=== PATIENT | female | born 1940 | race Caucasian/White ===

== ENCOUNTER 2022-01-30 06:39 | Emergency (ER) | payer MEDICARE, SELFPAY ==
[2022-01-30 06:45] VITALS: BP 179/78; PULSE 63; RESP 18; O2SAT 100; BMI 19.0
--- NOTE | 2022-01-30 07:06 | ED.EPISTAXIS ---
HPI - Epistaxis General Chief complaint: Nasal Problem Stated complaint: Nose Bleed Time Seen by Provider: 01/30/22 06:55 Source: patient Mode of arrival: EMS History of Present Illness HPI Narrative: 81-year-old female nonsmoker with noncontributory medical history presents with the chief complaint of a sudden painless right-sided nose bleed. She states she had a small amount of bleeding yesterday that she was able to stop with pressure but awoke this morning with a large amount of bright red blood largely from her right nostril but also coming out her left. She denies any trauma or injury and states she had not been recently ill. She denies any history of the same. She is not dizzy nor weak or lightheaded. She denies any chest pain or shortness of breath. Related Data Allergies Allergy/AdvReac Type Severity Reaction Status Date / Time No Known Drug Allergies Allergy Verified 01/30/22 06:45 Review of Systems Review of Systems Narrative: GENERAL: Denies chills, fatigue, malaise, fever, sweats. HEENT: See HPI RESPIRATORY: Denies dyspnea, cough, wheezing, hemoptysis, sputum. CARDIOVASCULAR: Denies chest pain, palpitations, orthopnea, edema, GASTROINTESTINAL: Denies nausea, vomiting, abdominal pain, diarrhea, constipation, melena. : Denies dysuria, frequency, incontinence, hematuria, urinary retention. MUSCULOSKELETAL: denies weakness, joint pain, or bony pain SKIN: Denies rash, skin lesions, or other NEUROLOGIC: Denies weakness, headache, numbness, change in speech, confusion, seizures, incoordination. PSYCHIATRIC: No concerning psychosocial issues. 12 point review of systems is negative except for those stated above Exam Narrative Exam Narrative: GENERAL: [81] year old patient appears stated age. Well-developed patient, in mild distress. HEAD: Atraumatic. Normocephalic. EYES: Pupils equal round and reactive. Extraocular motions intact. No scleral icterus. No injection or drainage. ENT: Brisk bright red bleeding from right nare, clots present but source of bleeding unable to be visualized. Fresh clots and left Alexandre, no source of bleeding noted Throat without erythema, tonsillar hypertrophy or exudate. Airway patent. NECK: Trachea midline. Non tender CARDIOVASCULAR: Regular rate and rhythm without murmurs, gallops, or rubs. RESPIRATORY: Clear to auscultation. Breath sounds equal bilaterally. No wheezes, rales, or rhonchi. GASTROINTESTINAL: Abdomen soft, non-tender, nondistended. EXTREMITIES: No edema or joint tenderness. BACK: Nontender without deformity or crepitance. No flank tenderness. NEURO: AOx3. SKIN: No rash or erythema of visible areas Initial Vital Signs Initial Vital Signs: Vital Signs Pulse Rate 63 01/30/22 06:45 Respiratory Rate 18 01/30/22 06:45 Blood Pressure 179/78 H 01/30/22 06:45 Pulse Oximetry 100 01/30/22 06:45 Oxygen Delivery Method 01/30/22 06:45 Procedures Epistaxis Control Time Out Performed: Yes Nostril: right Nose Prepped With: oxymetazoline Direct Inspection: yes Clots Removed by: suction Cautery Used: none Device Inserted: hemostatic balloon Device Size: 5 Course Orders Ordered: Discontinued Medications Silver Nitrate/Potassium Nitrate (Silver Nitrate Stick) 1 each TOP NOW ONE Stop: 01/30/22 07:51 Last Admin: 01/30/22 08:28 Dose: Not Given Documented By: NAV Tranexamic Acid (Tranexamic Acid 1,000 Mg Vial) 1,000 mg MM NOW ONE Stop: 01/30/22 08:01 Last Admin: 01/30/22 08:03 Dose: 1,000 mg Documented By: NAV Reevaluation(s) Reevaluation #1: patient had been initially placed in room with Afrin by medics and nasal clamp. Bleeding had been thought to have been controlled. Repeat evaluation demosntrates brisk bright red bleeding, no source noted. Rhinorocket ordered Consultations Consultation #1: call to Dr. Velázquez, given persistent though minimal bleeding around the rhino rocket I have requested that he see the patient. Given her relative stability he will see her in the office and request we discharged now and send her over Vital Signs Vital signs: Vital Signs - 8 hr 01/30/22 09:00 01/30/22 09:00 Pulse Rate 57 L Blood Pressure 167/74 H Pulse Oximetry 100 Discharge Plan Departure Patient Disposition: Home Clinical Impression: Epistaxis Instructions: DI for Nosebleed Activity Restrictions/Additional Instructions: *You have been diagnosed with [ acute epistaxis. ] *What to do: Please proceed directly to Dr. Velázquez's office at [facility]. They are expecting you Referrals: Humza Velázquez MD [Physician] - Visit Report Forms: Patient Portal/API
[2022-01-30] MEDS: TRANEXAMIC ACID 1,000 MG VIAL 1000 MG MM (08:03)
[2022-01-30 08:25] VITALS: PULSE 61; O2SAT 97
[2022-01-30 08:26] VITALS: BP 181/76; PULSE 60; O2SAT 100
[2022-01-30 08:30] VITALS: BP 176/80; PULSE 58; O2SAT 99
[2022-01-30 09:00] VITALS: BP 167/74; PULSE 57; O2SAT 100
== END 2022-01-30 09:33 | disposition home or self-care (01) ==
PROVIDERS: Emergency Provider Emergency Medicine
DX: R04.0 Epistaxis (principal)
CPT/HCPCS: 30901; 99282; 99283